=== PATIENT | male | born 1940 | race Caucasian/White ===

== ENCOUNTER 2020-01-04 12:17 | Outpatient (CLI) | payer MEDICARE, BC ==
[2020-01-04 14:32] LABS: Bacteria/HPF None Seen HPF (None Seen); Bilirubin Negative (Negative); Blood, Urine Negative (Negative); Clarity Clear (Clear); Glucose, Urine (Dipstick) Normal (Negative); Leukocyte Negative Leu/uL (Negative); Nitrite Negative (Negative); Protein, Urine (Dipstick) Negative (Neg-Trace); RBC/HPF None Seen HPF (0-3); Squamous Epithelial None Seen HPF (0-3); Urobilinogen Normal mg/dL (Less than 2); WBC/HPF None Seen HPF (0-3)
== END 2020-01-04 12:18 | disposition home or self-care (01) ==
LOC: LABBT 12:17
PROVIDERS: ATTEND Orthopaedic Surgery
DX: Z01.818 Encounter for other preprocedural examination (principal); M17.11 Unilateral primary osteoarthritis, right knee
CPT/HCPCS: 81001; 87081; 93005; 93010

== ENCOUNTER 2020-01-15 05:30 | Day surgery (SDC) | payer MEDICARE, BC ==
[2020-01-04 12:35] VITALS: BMI 30.4
[2020-01-15] MEDS ORDERED: Fentanyl 100 MCG/2 ML VIAL ONE ×5 (05:55→10:10)
[2020-01-15] MEDS ORDERED: Sodium Chloride 0.9% 100 ML ONE (05:57)
[2020-01-15] MEDS ORDERED: Tranexamic Acid 1,000 MG/10 ML VIAL ONE (05:57)
[2020-01-15] MEDS ORDERED: Vancomycin 1.5 GRAM/300 ML BAG 1.5 GM/300 ML BAG ONE (05:57)
[2020-01-15] MEDS ORDERED: Bupivacaine PF 0.5% 30 ML VIAL ONE (06:27)
[2020-01-15 06:41] LABS: Prothrombin Time 13.6 SEC (12.0-14.7)
[2020-01-15] MEDS ORDERED: Promethazine HCl 25 MG/ML VIAL IM PRN ×3 (07:03→07:57)
[2020-01-15] MEDS ORDERED: diphenhydrAMINE 25 MG CAP PO PRN (07:03)
[2020-01-15] MEDS ORDERED: Acetaminophen 325 MG TAB PO PRN ×2 (07:03→07:46)
[2020-01-15] MEDS ORDERED: Zolpidem Tartrate 5 MG TAB PO PRN ×2 (07:03→07:46)
[2020-01-15] MEDS ORDERED: HYDROcodone/Acetaminophen 10/325 mg Tablet PO PRN ×3 (07:03→07:46)
[2020-01-15] MEDS ORDERED: Ondansetron PF 4 MG/2 ML Vial IVP PRN ×2 (07:03→07:46)
[2020-01-15] MEDS ORDERED: Fentanyl 100 MCG/2 ML VIAL SLOW IVP PRN (07:03)
[2020-01-15] MEDS ORDERED: traMADol HCl 50 MG TAB PO PRN ×3 (07:03→07:46)
[2020-01-15] MEDS ORDERED: Tranexamic Acid 1,000 MG in Sodium Chloride 0.9% 100 ML IVPB SCH (07:15)
[2020-01-15] MEDS ORDERED: Ropivacaine HCl/PF 250 ML in Premix Bag 1 BAG NERVE BLCK SCH (07:46)
[2020-01-15] MEDS ORDERED: Fentanyl 100 MCG/2 ML VIAL IV PRN (07:46)
[2020-01-15] MEDS ORDERED: Promethazine HCl 25 MG/ML VIAL SLOW IVP PRN (07:57)
[2020-01-15] MEDS ORDERED: Ondansetron HCl/PF 4 MG/2 ML Vial IVP PRN (07:57)
[2020-01-15] MEDS ORDERED: MAGNESIUM 400 MG PO SCH (09:00)
[2020-01-15] MEDS ORDERED: UBIDECARENONE 400 MG PO SCH (09:00)
[2020-01-15] MEDS ORDERED: Non-Formulary Item 1 EACH (Zinc [Zinc] 50 MG) PO SCH (09:00)
[2020-01-15] MEDS ORDERED: Non-Formulary Item 1 EACH (Hydrochlorothiazide [Hydrochlorothiazide] 12.5 MG) PO SCH (09:00)
[2020-01-15] MEDS ORDERED: Hydrochlorothiazide 25 MG TAB PO SCH (09:00)
[2020-01-15] MEDS ORDERED: Non-Formulary Item 1 EACH (Losartan Potassium [Losartan Potassium] 100 MG) PO SCH (09:00)
[2020-01-15] MEDS ORDERED: Losartan 25 MG TAB PO SCH (09:00)
[2020-01-15] MEDS ORDERED: Ondansetron PF 4 MG/2 ML Vial ONE (10:13)
[2020-01-15] MEDS ORDERED: Ropivacaine 0.2% HCl/PF (40 MG/20 ML VIAL) ONE (10:13)
[2020-01-15] MEDS ORDERED: EPHEDRINE 25 MG/5 ML SYRINGE ONE (10:13)
[2020-01-15] MEDS ORDERED: Lidocaine 1% PF 5 ML VIAL ONE (10:13)
[2020-01-15] MEDS ORDERED: Succinylcholine Chloride 20 MG/ML 10 ml SYRINGE FS ONE (10:13)
[2020-01-15] MEDS ORDERED: Bupivacaine HCl 0.5%/Epinephrine 1:200,000/PF 30 ml Vial ONE (10:13)
[2020-01-15] MEDS ORDERED: PROPOFOL 200 MG/20 ML VIAL ONE (10:13)
[2020-01-15] MEDS: Ketorolac Tromethamine 30 MG/ML VIAL IVP SCH ×3 (13:28→23:02)
[2020-01-15] MEDS: Aspirin 81 mg Enteric Coated Tablet PO SCH ×2 (13:35→20:39)
[2020-01-15] MEDS: Ferrous Gluconate 324 MG TAB PO SCH ×2 (13:35→20:39)
[2020-01-15] MEDS: Sodium Chloride 0.9% 1,000 ML IV SCH ×2 (13:35→19:25)
[2020-01-15] MEDS: Ascorbic Acid 500 mg Chewable Tablet PO SCH (13:35)
[2020-01-15] MEDS: Magnesium Oxide 400 MG TAB PO SCH (13:36)
[2020-01-15] MEDS: Multivitamin W/ Minerals 1 TAB PO SCH (13:36)
[2020-01-15] MEDS: Ubidecarenone 50 MG CAP PO SCH (13:37)
[2020-01-15] MEDS: Zinc Sulfate 220 MG CAP PO SCH (13:37)
[2020-01-15] MEDS: Senokot S 8.6-50 MG TAB PO SCH ×2 (13:37→20:39)
[2020-01-15] MEDS ORDERED: Ketorolac Tromethamine 30 MG/ML VIAL IVP SCH (14:00)
[2020-01-15] MEDS: CEFAZOLIN 2 GM in Premix Bag 1 BAG IVPB SCH ×2 (14:47→22:14)
[2020-01-15] MEDS ORDERED: Vancomycin HCl 1.5 GM in Sodium Chloride 0.9% 250 ML 300 ML IVPB SCH (18:00)
[2020-01-16] MEDS: Sodium Chloride 0.9% 1,000 ML IV SCH ×3 (02:45→23:04)
[2020-01-16] MEDS: Ketorolac Tromethamine 30 MG/ML VIAL IVP SCH (05:16)
[2020-01-16 05:32] LABS: Hemoglobin 12.1 g/dL (14.0-18.0); Mean Corpuscular HGB CONC 34.1 g/dL (32.0-36.0); Mean Corpuscular Hemoglobin 31.4 pg (27.0-31.0); Mean Corpuscular Volume 92.2 fL (78.0-98.0); Mean Platelet Volume 7.4 fL (7.4-10.4); Platelet Count 168 thou/uL (130-400); RBC Distribution Width 11.7 % (11.5-14.5); Red Blood Cell (RBC) Count 3.86 mill/uL (4.70-6.10); White Blood Cell (WBC) Count 10.3 thou/uL (4.8-10.8)
[2020-01-16 05:59] LABS: Anion Gap 10 mmol/L (10-20); BUN (Urea Nitrogen) 37 mg/dL (8.4-25.7); Calc. Creatinine Clearance 44 mL/min (70-130); Calcium 7.9 mg/dL (7.8-10.44); Carbon Dioxide 23 mmol/L (23-31); Chloride 105 mmol/L (98-107); Estimated GFR-MDRD 38; Glucose 127 mg/dL (83-110); Magnesium 1.9 mg/dL (1.6-2.6); Potassium 4.4 mmol/L (3.5-5.1); Sodium 134 mmol/L (136-145)
--- NOTE | 2020-01-16 07:22 | PDOC.HOSPP ---
- Subjective Encounter Date: 01/15/20 Encounter Time: 13:30 Subjective: Patient seen and examined for med mngt. Pain controlled. No new complaints. - Objective Vital Signs & Weight: Vital Signs (12 hours) Temp Pulse Resp BP Pulse Ox 01/16/20 03:21 99.2 F 78 16 103/63 95 01/15/20 23:00 98.8 F 77 14 115/67 96 01/15/20 20:33 98.4 F 85 16 128/69 98 Weight Weight 200 lb I&O: 01/15/20 01/16/20 01/17/20 06:59 06:59 06:59 Intake Total 1330.5 Output Total 800 Balance 530.5 Result Diagrams: 01/16/20 05:11 01/16/20 05:11 Additional Labs: Laboratory Tests 01/11/20 09:56 Creatinine 1.67 H EKG Reviewed by me: Yes (SR) Hospitalist ROS - Review of Systems Respiratory: denies: cough, dry, shortness of breath, hemoptysis, SOB with excertion, pleuritic pain, sputum, wheezing, other Cardiovascular: denies: chest pain, palpitations, orthopnea, paroxysmal noc. dyspnea, edema, light headedness, other Gastrointestinal: denies: nausea, vomiting, abdominal pain, diarrhea, constipation, melena, hematochezia, other - Medication Medications: Active Medications Generic Name Dose Route Start Last Admin Trade Name Freq PRN Reason Stop Dose Admin Ascorbic Acid 500 mg 01/15/20 09:00 01/15/20 13:35 Vitamin C PO Not Given DAILY [facility] Aspirin 81 mg 01/15/20 09:00 01/15/20 20:39 Ecotrin PO 81 mg BID [facility] Administration Coenzyme Q10 400 mg 01/15/20 09:00 01/15/20 13:37 Coenzyme Q10 PO Not Given DAILY [facility] Ferrous Gluconate 324 mg 01/15/20 09:00 01/15/20 20:39 Fergon PO 324 mg BID [facility] Administration Hydrochlorothiazide 12.5 mg 01/15/20 09:00 01/15/20 13:36 Hydrochlorothiazide PO Not Given DAILY [facility] Sodium Chloride 1,000 mls @ 100 mls/hr 01/15/20 07:15 01/16/20 02:45 Normal Saline 0.9% IV Not Given .Q10H [facility] Iron/Minerals/Multivitamins 1 tab 01/15/20 09:00 01/15/20 13:36 Theragran M PO Not Given DAILY [facility] Ketorolac Tromethamine 15 mg 01/15/20 12:00 01/16/20 05:16 Toradol IVP 01/17/20 06:01 15 mg Q6HR [facility] Administration Losartan Potassium 100 mg 01/15/20 09:00 01/15/20 13:36 Cozaar PO Not Given DAILY [facility] Magnesium Oxide 400 mg 01/15/20 09:00 01/15/20 13:36 Magnesium Oxide PO Not Given DAILY [facility] Senna/Docusate Sodium 2 tab 01/15/20 09:00 01/15/20 20:39 Senokot S PO 2 tab BID [facility] Administration Sodium Chloride 10 ml 01/15/20 09:00 01/15/20 21:48 Flush - Normal Saline IVF 10 ml Q12HR [facility] Administration Zinc Sulfate 220 mg 01/15/20 09:00 01/15/20 13:37 Zinc Sulfate PO Not Given DAILY [facility] - Exam General Appearance: NAD Heart: RRR, no gallops Respiratory: no wheezes, no rales, no ronchi Gastrointestinal: non-tender, non-distended, no guarding, no rigidity Extremities: no cyanosis Neurological: no new deficit Hosp A/P - Plan DVT proph w/SCDs HTN CKD 3 Obesity BMI 30.4 DJD PLAN: Cont Losartan Hold HCTZ DVT prophylaxis PT/OT IS Full code. DPOA - self/family
[2020-01-16] MEDS ORDERED: hydrALAZINE 20 MG/ML VIAL SLOW IVP PRN (08:15)
[2020-01-16] MEDS: Ascorbic Acid 500 mg Chewable Tablet PO SCH (09:49)
[2020-01-16] MEDS: Ubidecarenone 50 MG CAP PO SCH (09:49)
[2020-01-16] MEDS: Zinc Sulfate 220 MG CAP PO SCH (09:49)
[2020-01-16] MEDS: Aspirin 81 mg Enteric Coated Tablet PO SCH ×2 (09:50→20:42)
[2020-01-16] MEDS: Senokot S 8.6-50 MG TAB PO SCH ×2 (09:51→20:42)
[2020-01-16] MEDS: Magnesium Oxide 400 MG TAB PO SCH (09:51)
[2020-01-16] MEDS: Ferrous Gluconate 324 MG TAB PO SCH ×2 (09:52→20:42)
[2020-01-16] MEDS: Multivitamin W/ Minerals 1 TAB PO SCH (09:52)
[2020-01-16] MEDS: Losartan 25 MG TAB PO SCH ×2 (09:54→20:42)
--- NOTE | 2020-01-16 12:53 | PDOC.HOSPP ---
- Subjective Encounter Date: 01/16/20 Encounter Time: 08:15 Subjective: Patient seen and examined for med mngt. Pain controlled. No fever or chills. No new complaints. No overnight events - Objective Vital Signs & Weight: Vital Signs (12 hours) Temp Pulse Resp BP BP Pulse Ox 01/16/20 12:33 99 F 79 16 125/69 95 01/16/20 07:35 98.5 F 76 16 109/66 97 01/16/20 03:21 99.2 F 78 16 103/63 95 Weight Admit Weight 200 lb Weight 200 lb I&O: 01/15/20 01/16/20 01/17/20 06:59 06:59 06:59 Intake Total 1330.5 Output Total 800 Balance 530.5 Result Diagrams: 01/16/20 05:11 01/16/20 05:11 Hospitalist ROS - Review of Systems Cardiovascular: denies: chest pain, palpitations, orthopnea, paroxysmal noc. dyspnea, edema, light headedness, other Gastrointestinal: denies: nausea, vomiting, abdominal pain, diarrhea, constipation, melena, hematochezia, other - Medication Medications: Active Medications Generic Name Dose Route Start Last Admin Trade Name Freq PRN Reason Stop Dose Admin Ascorbic Acid 500 mg 01/15/20 09:00 01/16/20 09:49 Vitamin C PO 500 mg DAILY [facility] Administration Aspirin 81 mg 01/15/20 09:00 01/16/20 09:50 Ecotrin PO 81 mg BID [facility] Administration Coenzyme Q10 400 mg 01/15/20 09:00 01/16/20 09:49 Coenzyme Q10 PO 400 mg DAILY [facility] Administration Ferrous Gluconate 324 mg 01/15/20 09:00 01/16/20 09:52 Fergon PO 324 mg BID [facility] Administration Hydrochlorothiazide 12.5 mg 01/15/20 09:00 01/15/20 13:36 Hydrochlorothiazide PO Not Given DAILY [facility] Sodium Chloride 1,000 mls @ 100 mls/hr 01/15/20 07:15 01/16/20 09:54 Normal Saline 0.9% IV Not Given .Q10H [facility] Ropivacaine 250 ml/ Device 250 mls @ 0 mls/hr 01/15/20 07:46 01/16/20 12:13 NERVE BLCK 01/17/20 07:47 250 mls INF [facility] Administration As Directed Iron/Minerals/Multivitamins 1 tab 01/15/20 09:00 01/16/20 09:52 Theragran M PO 1 tab DAILY [facility] Administration Losartan Potassium 25 mg 01/16/20 09:00 01/16/20 09:54 Cozaar PO Not Given BID [facility] Magnesium Oxide 400 mg 01/15/20 09:00 01/16/20 09:51 Magnesium Oxide PO 400 mg DAILY [facility] Administration Senna/Docusate Sodium 2 tab 01/15/20 09:00 01/16/20 09:51 Senokot S PO 2 tab BID [facility] Administration Sodium Chloride 10 ml 01/15/20 09:00 01/16/20 09:53 Flush - Normal Saline IVF 10 ml Q12HR [facility] Administration Zinc Sulfate 220 mg 01/15/20 09:00 01/16/20 09:49 Zinc Sulfate PO 220 mg DAILY [facility] Administration - Exam General Appearance: NAD Heart: RRR, no gallops Respiratory: CTAB, no rales Gastrointestinal: non-tender, normal bowel sounds Extremities: no cyanosis Neurological: no new deficit Psychiatric: normal affect, A&O x 3 Hosp A/P - Plan DVT proph w/SCDs HTN CKD 3 Obesity BMI 30.4 DJD PLAN: Reduce Losartan to 25 mg BID Hold HCTZ Cont other meds as above Cont PT/OT Cont IS
--- NOTE | 2020-01-16 20:18 | OP ---
DATE OF PROCEDURE: 01/15/2020 PREOPERATIVE DIAGNOSIS: Right knee osteoarthrosis. POSTOPERATIVE DIAGNOSIS: Right knee osteoarthrosis. PROCEDURE PERFORMED: Right total knee replacement using Nix Hydra pinless navigation. ORDER ENTRY REPRESENTATIVE: Ok Cordero PA-C BLOOD LOSS: Minimal. COMPLICATIONS: None. ANESTHESIA: He did have a general anesthetic as well as a preoperative block. IMPLANTS: To the right knee include [place] triathlon total knee system. The femur was a size 5 right cruciate-retaining femur. We used a 5 primary tibial baseplate. We used a 5 x 9 mm CS X3 tibial poly and an asymmetric 29 x 9 X3 patella. DISPOSITION: He did go to recovery room in stable condition. INDICATIONS FOR PROCEDURE: This is an active 79-year-old male who had his left knee replaced years ago. He has done well from that and at this time wished to have the right knee replaced secondary to daily pain. PROCEDURE IN DETAIL: After all appropriate consent forms were explained and signed, the patient was taken back to the operating room and at this time was given general anesthetic. Once the level of anesthesia was appropriate, a well-padded tourniquet was placed on the right leg, and the leg was then prepped and draped in standard surgical fashion. The limb was exsanguinated and tourniquet taken up to 300 mmHg. Midline incision was made with a 10 blade down through the skin and subcutaneous tissue. Bovie electrocautery was used to coagulate any brisk venous bleeding. A new blade was used to make a medial parapatellar arthrotomy. Small subperiosteal release was performed medially and excess fat pad was removed. The knee was flexed up to gain access to the femur. The femur was navigated and distal femoral resection was made. Epicondylar access was used to align our sizing jig and this was pinned in place. We sized our femur to be a size 5 right cruciate-retaining femur. 4:1 cutting block was applied and pinned. Anterior and posterior chamfer cuts were then made. We navigated out our proximal tibia and made our proximal tibial resection. Spreaders were used to remove any posterior osteophytes off the back of the femur as well as remaining meniscal tissue. A long alignment anabel was then used to achieve correct rotation of our tibial baseplate and a size 5 primary tibial baseplate was chosen. This was pinned in place. We trialed the polyethylene and a 5 x 9 mm CS X3 tibial polyethylene gave us full extension and good stability throughout range of motion. Two towel clips and a saw were used to cut our patella. Three lug nuts were drilled and asymmetric 29 x 9 X3 patella was trialed which sat nicely in the trochlear groove. We then drilled our femur and punched our tibia. All components were removed. The knee was thoroughly irrigated and dried. Cement was mixed into the cement gun on the back table. Components were then placed. The knee was held out in full extension until the cement had dried. All excess bone cement was removed. Multiple #2 Vicryl stitches as well as a Quill were used to close our extensor mechanism. 0 Quill followed by a running Monoderm was then used to close the skin. Surgicel glue was then used on the skin. Once this had dried, soft tissue dressing was applied to the limb, tourniquet was let down, and the toes pinked up nicely. The patient was then awakened and taken to the recovery room in stable condition. All counts were correct at the end of the case. The patient did receive preoperative IV antibiotics. The patient was injected with Marcaine for postoperative pain relief. Job ID: [id number]
[2020-01-17 06:04] LABS: Hemoglobin 11.7 g/dL (14.0-18.0); Mean Corpuscular HGB CONC 35.9 g/dL (32.0-36.0); Mean Corpuscular Hemoglobin 32.8 pg (27.0-31.0); Mean Corpuscular Volume 91.5 fL (78.0-98.0); Mean Platelet Volume 7.7 fL (7.4-10.4); Platelet Count 158 thou/uL (130-400); RBC Distribution Width 11.6 % (11.5-14.5); Red Blood Cell (RBC) Count 3.57 mill/uL (4.70-6.10)
[2020-01-17] MEDS: Senokot S 8.6-50 MG TAB PO SCH (08:34)
[2020-01-17] MEDS: Zinc Sulfate 220 MG CAP PO SCH (08:34)
[2020-01-17] MEDS: Ascorbic Acid 500 mg Chewable Tablet PO SCH (08:34)
[2020-01-17] MEDS: Ubidecarenone 50 MG CAP PO SCH (08:34)
[2020-01-17] MEDS: Multivitamin W/ Minerals 1 TAB PO SCH (08:34)
[2020-01-17] MEDS: Ferrous Gluconate 324 MG TAB PO SCH (08:34)
[2020-01-17] MEDS: Magnesium Oxide 400 MG TAB PO SCH (08:34)
[2020-01-17] MEDS: HYDROcodone/Acetaminophen 10/325 mg Tablet PO PRN ×2 (08:35→15:07)
[2020-01-17] MEDS: Aspirin 81 mg Enteric Coated Tablet PO SCH (08:35)
[2020-01-17] MEDS: Losartan 25 MG TAB PO SCH (08:37)
[2020-01-17] MEDS: Sodium Chloride 0.9% 1,000 ML IV SCH (10:40)
[2020-01-17 12:01] VITALS: TEMP 97.6
[2020-01-17 15:46] VITALS: BP 125/74
--- NOTE | 2020-01-22 08:23 | DIS ---
DATE OF ADMISSION: 01/15/2020 DATE OF DISCHARGE: 01/17/2020 DISCHARGE DISPOSITION: Home. ADMISSION DIAGNOSIS: End-stage tricompartmental osteoarthritis, right knee. DISCHARGE DIAGNOSIS: End-stage tricompartmental osteoarthritis, right knee. OPERATIVE PROCEDURE: Right total knee arthroplasty. CONSULTANTS: [facility]. BRIEF CLINICAL HISTORY: The patient is a 79-year-old male, was admitted to [facility] and underwent the above elective procedure on the date of admission without intra-, adin-, or postoperative complication. The hospital course was unremarkable. At the time of discharge, the patient is afebrile, ambulatory without assistance utilizing a rolling walker in a full weightbearing fashion, tolerating a regular diet, and voiding without difficulty. The patient's incision is clean and closed without any erythema. DISCHARGE MEDICATIONS: Please see medication reconciliation form. We will be happy to see the patient on an as-needed basis between now and the patient's next scheduled appointment. CONDITION ON DISCHARGE: Stable. PROGNOSIS: Good. Job ID: [id number]
== END 2020-01-17 16:19 | disposition home or self-care (01) ==
LOC: SDC 05:30 → SURG B 11:30 → SDC 01-17 16:19
PROVIDERS: ATTEND Orthopaedic Surgery
PROC: 0SRC0J9 Replacement of Right Knee Joint with Synthetic Substitute, Cemented, Open Approach (ICD-10-PCS; principal; 2020-01-15)
PROC: 8E0YXBZ Computer Assisted Procedure of Lower Extremity (ICD-10-PCS; 2020-01-15)
DX: M17.11 Unilateral primary osteoarthritis, right knee (principal); I12.9 Hypertensive chronic kidney disease with stage 1 through stage 4 chronic kidney disease, or unspecified chronic kidney disease; N18.3 Chronic kidney disease, stage 3 (moderate); F41.9 Anxiety disorder, unspecified; E66.9 Obesity, unspecified; Z68.30 Body mass index [BMI] 30.0-30.9, adult; Z79.899 Other long term (current) drug therapy; Z88.8 Allergy status to other drugs, medicaments and biological substances
CPT/HCPCS: 20985; 27447; 64445; 64447; 80048; 83735; 85027; 85610; 97110; 97116 ×3; 97139 ×3; 97150 ×2; 97530 ×2; 98961; C1713; C1776; 36415; J0670; J0690; J1885; J2001; J2405; J2704; J2795; J3010; J3490; S0020